=== PATIENT | male | born 1955 | race Caucasian/White ===

== ENCOUNTER → 2017-04-18 | Day surgery (SDC) | payer MEDICARE, OTHER ==
[2017-04-09 23:32] VITALS: BMI 36.3
--- NOTE | 2017-04-17 10:43 | HP ---
HISTORY AND PHYSICAL CHIEF COMPLAINT: Right shoulder pain. HISTORY OF PRESENT ILLNESS: The patient is a 61-year-old, right-hand dominant, retired gentleman who presents after falling in his living room on 11/14/2016 with persistent right shoulder pain. He has tried medications, physical therapy, and an injection with only partial temporary relief. He is having pain with attempted overhead use and at night. PAST MEDICAL HISTORY: Significant for coronary artery disease, history of pancreatitis and hypertension. PAST SURGICAL HISTORY: Significant for coronary artery bypass grafting, gastric bypass, cholecystectomy, and appendectomy. CURRENT MEDICATIONS: 1. Atorvastatin. 2. Demadex. 3. Diclofenac. 4. Inderal. 5. Plavix. 6. Prilosec. 7. [place]. ALLERGIES: He denies drug allergies. FAMILY HISTORY: Significant for heart disease. SOCIAL HISTORY: Negative for current tobacco or alcohol use. REVIEW OF SYSTEMS: Sixteen point review of systems otherwise reviewed and is noncontributory. PHYSICAL EXAMINATION: On examination, the patient is approximately 6 feet, 1 inch, 205 pounds of endomorphic habitus. HEENT exam is nonfocal. Neck is supple. Active range of motion of the right shoulder. Forward elevation 95 degrees, external rotation with the arm at side 35 degrees, internal rotation to L2. He has moderate subacromial crepitus. He is tender about the anterior subacromial space. Motor strength is 5 minus over 5 for external rotation and 4+ or 5 for abduction. Impingement test, Neer test, and Speed tests are positive. His distal neurovascular exam appears to be intact in the right upper extremity. MRI report right shoulder 03/07/2017 shows a supraspinatus tendon tear with some retraction. IMPRESSION: 1. Symptomatic right rotator cuff tear/impingement. 2. Right shoulder bicipital tendinitis. RECOMMENDATIONS: I talked to the patient at length regarding his treatment options. At this point, he remains quite symptomatic despite conservative measures. After a thorough discussion of his options, he opts to proceed with surgery. We will plan to proceed with arthroscopic evaluation with probable subacromial decompression, rotator cuff repair, and possible biceps tenotomy. Risks and benefits were discussed at length in layman's terms. MMODL / IJN: [id number] /
[~2017-04-18] MED LIST: DEXAMETHASONE SOD PHOSPHATE 10 MG/ML 1 ML VIAL IV ONE; EPINEPHrine (PF) 1 ML in SODIUM CHLORIDE 0.9% IRRIGATIO 3,000 ML IRRIGATION ONE; HYDROcodone/APAP 7.5-325MG 1 EACH TAB PO ONE; LACTATED RINGERS 1,000 ML IV ONE; LACTATED RINGERS 1,000 ML IV SCH; LIDOCAINE 1% INJ 10MG/ML (20 ML MDV) ONE; LIDOCAINE 2%-EPI 1:100,000 20 ML VIAL ONE; MIDAZOLAM 2 MG/2 ML VIAL IV PRN; MIDAZOLAM 2 MG/2 ML VIAL ONE; MORPHINE SULFATE 4 MG/ML SYRINGE IV PRN; ONDANSETRON 4 MG/2 ML VIAL IVP ONE; PROPOFOL 10 MG/ML 20 ML VIAL IV ONE; ROPIVACAINE 5 MG/ML 30 ML VIAL ONE; SCOPOLAMINE 1.5MG/72HR PATCH TRANSDERM ONE; SUCCINYLCHOLINE CHLORIDE VIAL 200 MG/10 ML VIAL IV ONE; ceFAZolin IN SWFI 2 GM/20 ML SYRINGE IVP ONE; ePHEDrine SULFATE/0.9% NACL/PF 50 MG/5 ML SYRINGE IV ONE; fentaNYL (PF) 50 MCG/ML 2 ML AMP ONE
[2017-04-18 06:56] VITALS: RESP 16
--- NOTE | 2017-04-18 07:25 | P.ONQ ---
Anesthesiology Proc Note - PNB - Peripheral Nerve Block Performed Right Interscalene Indication: Acute Post-Operative Pain, Requested by physician ([place]) Sedation Type: Sedate with meaningful contact maintained Preparation: Sterile Prep Position: Supine Catheter: None Needle Types: Other (see comment) (Jaky) Needle Size: 50mm (2") Needle Gauge: 20 Technique: Ultrasound (15cc 0.5% ropivacaine, 15cc Lidocaine 1%, 1:100,00 epi) Blood Aspirated: No Pain Paresthesia on Injection Noted: No Resistance on Injection: Normal Events: Uneventful and Well Tolerated
--- NOTE | 2017-04-18 09:38 | P.OP ---
Date of Procedure: 04/18/17 Preoperative Diagnosis: Symptomatic right rotator cuff tear Postoperative Diagnosis: 3 cm right rotator cuff tear, high-grade partial-thickness tear long head of the biceps, superior labral tear Procedure(s) Performed: Right shoulder arthroscopic subacromial decompression, biceps tenotomy, rotator cuff repair, superior labral debridement Implants: Arthrex 4.75 mm swivel lock anchor 4 [facility] Surgeon: Manuel Childress [employer] Commander #1: Kranthi Cat Estimated Blood Loss (ml): 10 Pathology: none sent Condition: stable Disposition: PACU Indications for Procedure: The patient's a 61-year-old male who presents with progressive right shoulder pain after a previous fall. He tried conservative measures without significant relief. A discussion of the risks and benefits of operative intervention versus continued conservative measures was made with the patient. The opted to proceed with surgery. Operative risks to include infection, neurovascular injury, development of blood clots, possible tendon rerupture, possible postoperative stiffness and need for subsequent procedures was discussed. Informed consent was obtained. Operative Findings: As below Description of Procedure: The patient was brought to the operating room, and after induction of general anesthesia was placed in a beachchair position. The bony prominences were appropriately padded. I examined his right shoulder. There was no gross block to passive motion. There was no gross glenohumeral instability. The right upper extremity was then prepped and draped in normal fashion. The bony outlines of the acromion, distal clavicle, and coracoid process were outlined with a skin marker. The glenohumeral joint was inflated with 50 mL of saline utilizing a spinal needle from a posterior approach. A posterior portal was made through a 5 mm skin incision 1 cm medial and inferior to the posterior lateral border of the acromion. A blunt trocar was used to easily into the joint. An anterior portals made just lateral to the coracoid process through a 5 mm skin incision entering the joint above the subscapularis tendon. The anterior labrum appeared to be intact. The subscapularis appeared to be intact. There was a high-grade partial-thickness tear of the long head of the biceps. A type II superior labral tear was also noted. It was elected to proceed with biceps tenotomy at this point. It was released from the superior labrum with electrocautery and lateral to retract the bicipital groove. The superior labrum was debrided back to stable base with a motorized shaver. On inspection of the rotator cuff, a 3 cm tear involving the supraspinatus and a portion of the infraspinatus tendon was noted. There was minimal retraction. The posterior portion of the cuff appeared to be intact. The inferior recess was inspected. Minimal general changes involving the humeral head and glenoid articular surface were noted. The arthroscope was then placed into the subacromial space. A lateral portal was made through a 5 mm skin incision 2 cm inferior to the anterolateral border the acromion. The soft tissue on the undersurface of the acromion was debrided with a motorized shaver and electrocautery clearly defining the anterior medial and lateral borders as well as the distal clavicle. The coracoacromial ligament was detached and anterior acromion with electrocautery. An anterior inferior acromioplasty is performed with a motorized amina starting anterolateral, then extending this posteriorly, then extending this medially. Is able to convert to a flat acromion viewing from both the posterior and lateral viewing portals. Attention was then paid towards the rotator cuff. The bursal tissues debrided with motorized shaver. The rotator cuff was easily mobilized back to the greater tuberosity. The greater tuberosity was prepared and lightly decorticated utilizing a motorized amina down to a bleeding bony surface. An accessory superior lateral portals made through a 4 mm skin incision just off the lateral edge of the acromion. A trocar was used to placed 2 anchors just off the articular surface. 4.75 mm anchors were placed loaded with fiber tape. Good purchase was obtained. These were then passed through the rotator cuff with a scorpion suture passer. A lateral row was created crisscrossing the sutures utilizing 2 anchors. Again good purchase was obtained. The rotator cuff was appropriate tension. Final arthroscopic view showed adequate compression and congregational of the augustine of present. The arthroscope was then removed. The portals were closed with simple 3-0 nylon suture. A sterile dressing was applied in addition to an abductor brace. The patient was awoken from general anesthesia and transferred to recovery room in good condition. Blood loss was estimated at 10 mL. No complications were incurred. Sponge and needle counts were correct at the end the case.
[2017-04-18 09:40] VITALS: TEMP 97
[2017-04-18 11:00] VITALS: BP 150/93; PULSE 86
== END | disposition home or self-care (01) ==
LOC: OR 06:28
PROVIDERS: ATTEND Orthopaedic Surgery
DX: S46.111A Strain of muscle, fascia and tendon of long head of biceps, right arm, initial encounter (principal); M75.101 Unspecified rotator cuff tear or rupture of right shoulder, not specified as traumatic; I25.10 Atherosclerotic heart disease of native coronary artery without angina pectoris; I10 Essential (primary) hypertension; Z79.02 Long term (current) use of antithrombotics/antiplatelets; Z79.899 Other long term (current) drug therapy; Z95.1 Presence of aortocoronary bypass graft; Z98.84 Bariatric surgery status; Z82.49 Family history of ischemic heart disease and other diseases of the circulatory system; Z91.81 History of falling
CPT/HCPCS: 64415; 29827; 29826; C1713 ×2; J2250; J0330; J1100; J2405; J0171; J2001; J3010; J2795; J2704

== ENCOUNTER 2019-09-25 18:36 | Inpatient (IN) | payer MEDICARE, OTHER ==
[2019-09-25] MEDS ORDERED: diphenhydrAMINE 50 MG/ML 1 ML VIAL IVP STA (18:45)
[2019-09-25] MEDS ORDERED: ONDANSETRON 4 MG/2 ML VIAL IVP STA (18:45)
[2019-09-25] MEDS ORDERED: SODIUM CHLORIDE 0.9% 1,000 ML IV STA (18:45)
[2019-09-25 18:50] LABS: Glucose,Whole Blood 109 mg/dL (75-99)
--- NOTE | 2019-09-25 19:01 | ED ---
General Adult HPI - General Stated complaint: CVA Time Seen by Provider: 09/25/19 18:38 - History of Present Illness Initial comments: Dictation was produced using [employer] dictation software. please excuse any grammatical, word or spelling errors. This patient was cared for during a federal and state declared state of emergency secondary to Covid 19 Chief Complaint: 63-year-old male presents with lightheadedness, vision changes and headache History of Present Illness: 63-year-old male who has past medical history of headaches. Patient is brought to us by EMS from home. 2 hours ago he began feeling presyncopal. He also developed left-sided retro-orbital headache or he states that his headache began moving up to the right side. He describes some vision changes. He describes it as "prismy", the same as though he is seeing m ultiple deficit perception out of both eyes. EMS upon their evaluation noted the patient was mildly aphasic with right-sided weakness. She denies any right- sided weakness at this time. He denies any numbness tingling or paresthesias. He is a reliable historian. He denies this being the worse headache of his life. He has had headaches like this in the past. The ROS documented in this emergency department record has been reviewed and confirmed by me. Those systems with pertinent positive or negative responses have been documented in the HPI. All other systems are other negative and/or n oncontributory. PHYSICAL EXAM: General Impression: Alert and oriented x3, not in acute distress HEENT: Normocephalic atraumatic, extra-ocular movements intact, pupils equal and reactive to light bilaterally, mucous membranes moist. Cardiovascular: Heart regular rate and rhythm Chest: Able to complete full sentences, no retractions, no tachypnea Abdomen: abdomen soft, non-tender, non-distended, no organomegaly Musculoskeletal: Pulses present and equal in all extremities, no peripheral edema Motor: no focal deficits noted Neurological: CN II-XII grossly intact, no focal motor or sensory deficits noted, and 80, no facial droop, no aphasia, no sensory deficit to light touch, intact vision to near sight objects, no ataxia Skin: Intact with no visualized rashes Psych: Normal affect and mood ED course: 63-year-old male presents with headache, vision changes. EMS reports that patient was aphasic and had focal neurologic deficits on the right. Upon my evaluation patient did not have any such symptoms. An arrival are within acceptable limits. NIH is 0. Patient's well-appearing at bedside. Laboratory evaluation obtained. Mild leukocytosis of 12.2 uncertain significance. Coag panel unremarkable. Metabolic panel is within acceptable limits. Slightly elevated BUN to creatinine ratio concerning for mild dehydration. Computed tomography scan the brain is unremarkable. Chest x-ray is nonacute. Considering patient's history of present illness and in light of EMS initial evaluation there is concern that patient suffered transient ischemic attack. Patient does not have any neuro deficits at bedside. Patient reevaluated after couple hours in the ER with no neuro deficits. Patient given headache cocktail with improvement of symptoms. Patient will be admitted to observation with consultation to neurology for concern of transient ischemic attack. EKG interpretation: Ventricular rate 85, normal sinus rhythm, MA interval 204, QRS 100, QTC 437. No MA prolongation, no QTC prolongation, no ST or T-wave changes noted. No EKG for comparison. There do appear to be hyperacute T waves in the anterior precordial leads. - Related Data Home Medications Medication Instructions Recorded Confirmed Felodipine ER [Plendil] 5 mg PO HS 04/09/17 04/09/17 Omeprazole 20 mg PO QAM 04/09/17 04/09/17 Propranolol HCl [Propranolol HCl 120 mg PO BID 04/09/17 04/09/17 ER] Spironolactone [Aldactone] 25 mg PO QAM 04/09/17 04/09/17 Torsemide [Demadex] 20 mg PO QAM 04/09/17 04/09/17 Previous Rx's Medication Instructions Recorded HYDROcodone/APAP 7.5-325MG [[place] 1 each PO Q6HR PRN #30 tab 04/18/17 7.5] Allergies Allergy/AdvReac Type Severity Reaction Status Date / Time No Known Allergies Allergy Verified 04/18/17 06:41 Review of Systems ROS Statement: Those systems with pertinent positive or pertinent negative responses have been documented in the HPI. ROS Other: All systems not noted in ROS Statement are negative. Past Medical History Past Medical History: GERD/Reflux, Hyperlipidemia, Hypertension History of Any Multi-Drug Resistant Organisms: None Reported Past Surgical History: Appendectomy, Cholecystectomy, Coronary Bypass/CABG, Orthopedic Surgery Additional Past Surgical History / Comment(s): left arm tendon repair, stent in bile tract, exploratory abd surgery with appy Past Anesthesia/Blood Transfusion Reactions: Previous Problems w/ Anesthesia Additional Past Anesthesia/Blood Transfusion Reaction / Comment(s): only one time a month ago at [facility] was loopy for 3 days after sugery Smoking Status: Former smoker - Past Family History Mother Family Medical History: No Reported History Course Vital Signs 09/25/19 19:03 Temperature 99.6 F Pulse Rate 81 Respiratory 18 Rate Blood Pressure 167/104 O2 Sat by Pulse 95 Oximetry Medical Decision Making - Lab Data Result diagrams: 09/25/19 18:50 09/25/19 18:50 Lab Results 09/25/19 09/25/19 09/25/19 Range/Units 18:48 18:50 18:50 WBC 12.2 H (3.8-10.6) k/uL RBC 5.28 (4.30-5.90) m/uL Hgb 14.9 (13.0-17.5) gm/dL Hct 46.8 (39.0-53.0) % MCV 88.6 (80.0-100.0) fL MCH 28.3 (25.0-35.0) pg MCHC 31.9 (31.0-37.0) g/dL RDW 16.3 H (11.5-15.5) % Plt Count 442 (150-450) k/uL Neutrophils % 69 % Lymphocytes % 15 % Monocytes % 10 % Eosinophils % 3 % Basophils % 1 % Neutrophils # 8.4 H (1.3-7.7) k/uL Lymphocytes # 1.8 (1.0-4.8) k/uL Monocytes # 1.2 H (0-1.0) k/uL Eosinophils # 0.3 (0-0.7) k/uL Basophils # 0.1 (0-0.2) k/uL Anisocytosis Slight PT 9.4 (9.0-12.0) sec INR 0.9 (<1.2) APTT 24.3 (22.0-30.0) sec Sodium (137-145) mmol/L Potassium (3.5-5.1) mmol/L Chloride (98-107) mmol/L Carbon Dioxide (22-30) mmol/L Anion Gap mmol/L BUN (9-20) mg/dL Creatinine (0.66-1.25) mg/dL Est GFR (CKD-EPI)AfAm (>60 ml/min/1.73 sqM) Est GFR (CKD-EPI)NonAf (>60 ml/min/1.73 sqM) Glucose (74-99) mg/dL POC Glucose (mg/dL) 109 H (75-99) mg/dL POC Glu [employer] Lacy Bueno Plasma Lactic Acid Zac (0.7-2.0) mmol/L Calcium (8.4-10.2) mg/dL Magnesium (1.6-2.3) mg/dL Total Bilirubin (0.2-1.3) mg/dL AST (17-59) U/L ALT (4-49) U/L Alkaline Phosphatase (38-126) U/L Total Protein (6.3-8.2) g/dL Albumin (3.5-5.0) g/dL 09/25/19 09/25/19 Range/Units 18:50 18:50 WBC (3.8-10.6) k/uL RBC (4.30-5.90) m/uL Hgb (13.0-17.5) gm/dL Hct (39.0-53.0) % MCV (80.0-100.0) fL MCH (25.0-35.0) pg MCHC (31.0-37.0) g/dL RDW (11.5-15.5) % Plt Count (150-450) k/uL Neutrophils % % Lymphocytes % % Monocytes % % Eosinophils % % Basophils % % Neutrophils # (1.3-7.7) k/uL Lymphocytes # (1.0-4.8) k/uL Monocytes # (0-1.0) k/uL Eosinophils # (0-0.7) k/uL Basophils # (0-0.2) k/uL Anisocytosis PT (9.0-12.0) sec INR (<1.2) APTT (22.0-30.0) sec Sodium 138 (137-145) mmol/L Potassium 4.7 (3.5-5.1) mmol/L Chloride 106 (98-107) mmol/L Carbon Dioxide 25 (22-30) mmol/L Anion Gap 7 mmol/L BUN 29 H (9-20) mg/dL Creatinine 1.11 (0.66-1.25) mg/dL Est GFR (CKD-EPI)AfAm 81 (>60 ml/min/1.73 sqM) Est GFR (CKD-EPI)NonAf 70 (>60 ml/min/1.73 sqM) Glucose 110 H (74-99) mg/dL POC Glucose (mg/dL) (75-99) mg/dL POC Glu [employer] Machinist ID Plasma Lactic Acid Zac 1.3 (0.7-2.0) mmol/L Calcium 9.3 (8.4-10.2) mg/dL Magnesium 2.0 (1.6-2.3) mg/dL Total Bilirubin 0.4 (0.2-1.3) mg/dL AST 26 (17-59) U/L ALT 39 (4-49) U/L Alkaline Phosphatase 119 (38-126) U/L Total Protein 7.1 (6.3-8.2) g/dL Albumin 4.2 (3.5-5.0) g/dL Disposition Clinical Impression: TIA (transient ischemic attack) Disposition: ADMITTED IP TO THIS HOSP Condition: Fair Referrals: Jim Suarez MD [Primary Care Provider] - 1-2 days Decision Time: 20:17
[2019-09-25 19:15] LABS: Anisocytosis Slight; Basophils # (A) 0.1 k/uL (0-0.2); Basophils % (A) 1 %; Eosinophils # (A) 0.3 k/uL (0-0.7); Eosinophils % (A) 3 %; HCT 46.8 % (39.0-53.0); HGB 14.9 gm/dL (13.0-17.5); Lymphocytes # (A) 1.8 k/uL (1.0-4.8); Lymphocytes % (A) 15 %; MCH 28.3 pg (25.0-35.0); MCHC 31.9 g/dL (31.0-37.0); MCV 88.6 fL (80.0-100.0); Mean Platelet Volume 7.4; Monocytes # (A) 1.2 k/uL (0-1.0); Monocytes % (A) 10 %; Neutrophils # (A) 8.4 k/uL (1.3-7.7); Neutrophils % (A) 69 %; Platelet Count 442 k/uL (150-450); RBC 5.28 m/uL (4.30-5.90); RDW 16.3 % (11.5-15.5); WBC 12.2 k/uL (3.8-10.6)
[2019-09-25 19:23] LABS: Albumin 4.2 g/dL (3.5-5.0); Calcium 9.3 mg/dL (8.4-10.2); Potassium 4.7 mmol/L (3.5-5.1); Total Bilirubin 0.4 mg/dL (0.2-1.3); Total Protein 7.1 g/dL (6.3-8.2)
[2019-09-25 19:24] LABS: INR 0.9 (<1.2); Prothrombin Time 9.4 sec (9.0-12.0)
[2019-09-25 19:25] LABS: Partial Thromboplastin Time 24.3 sec (22.0-30.0)
--- NOTE | 2019-09-25 19:29 | CT ---
EXAMINATION TYPE: CT brain wo con DATE OF EXAM: 09/25/2019 COMPARISON: None HISTORY: 63-year-old male Headache and vision changes. TECHNIQUE: Examination was done in axial plane without intravenous contrast. Coronal and sagittal r econstructions performed. CT DLP: 1099.4 mGycm Automated exposure control for dose reduction was used. FINDINGS: There is no evidence of acute intracranial hemorrhage, acute ischemic changes, mass, mass-effect, or extra-axial fluid collection. There is no effacement of cerebral sulci or basal subarachnoid cister ns. There is no hydrocephalus. There is no midline shift. Esparza-white matter distinction is preserv ed. Dolichoectatic left vertebral and basilar arteries. 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 Paranasal sinuses and mastoid air cells well pneumatized. IMPRESSION: 1. No acute intracranial abnormality seen. 2. 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
--- NOTE | 2019-09-25 19:38 | XR ---
EXAMINATION TYPE: XR chest 1V portable DATE OF EXAM: 09/25/2019 Comparison: None Clinical History: 63-year-old male with neurologic symptoms Findings: Median sternotomy wires are present with post-CABG clips. Heart mildly enlarged. Mild interstitial pr ominence is a chronic appearance. No consolidation or pleural effusion. Impression: Prior median sternotomy. Mild cardiomegaly. No definite acute process.
[2019-09-25] MEDS ORDERED: ASPIRIN 81 MG PO STA (20:16)
[2019-09-25] MEDS ORDERED: NALOXONE 0.4 MG/ML 1 ML VIAL IV PRN (20:17)
[2019-09-25] MEDS: SODIUM CHLORIDE 0.9% 1,000 ML IV SCH (20:41)
[2019-09-25] MEDS: MORPHINE SULFATE 4 MG/ML SYRINGE IV PRN (21:23)
[2019-09-25] MEDS: ACETAMINOPHEN TAB 325 MG TAB PO PRN (23:02)
[2019-09-26] MEDS: MORPHINE SULFATE 4 MG/ML SYRINGE IV PRN (10:49)
[2019-09-26] MEDS ORDERED: HYDROmorphone 1 MG/ML 1 ML SYRINGE IVP STA (12:13)
--- NOTE | 2019-09-26 12:30 | CT ---
EXAMINATION TYPE: CT angio head neck DATE OF EXAM: 09/26/2019 HISTORY: TIA COMPARISON: Previous CT brain dated 09/25/2019. CT DLP: 724.8 mGycm. Automated Exposure Control for Dose Reduction was Utilized. TECHNIQUE: CTA scan of the neck is performed with IV Contrast, patient injected with 65 mL of Isovue 370, axial images are obtained, coronal and sagittal reformatted images are reviewed. Three-D recons tructed images are created on an independent workstation and reviewed. FINDINGS: Visualized portions of the lungs are clear. The aortic root is dilated measuring 4.5 cm. 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 Vertebral body height and alignment are maintained. Atlantoaxial relationships are normal. There is d egenerative disc disease and hypertrophic spondylosis at C5-6 and there is mild facet arthropathy at this level. The facets are unremarkable. There is a 1.5 cm retention cyst or polyp involving the left maxillary sinus. The remainder the paran dee sinuses and mastoids are clear. There is a normal origin of the great vessels. The left vertebral artery is dominant. There is no sig nificant calcified plaque at the carotid bifurcations. There is minimal calcification on the left. Th ere is no significant stenosis on either side. CT of the [place] demonstrates moderate calcification of the intrahepatic petrous and intrac avernous portions of the ICA bilaterally. There is dolichoectasia of the vertebrobasilar system. Both anterior cerebral arteries are patent. The posterior circulation appears normal. There appears to be normal arborization of the middle cerebral arteries. IMPRESSION: 1. NO SIGNIFICANT CAROTID ARTERY STENOSIS. 2. UNREMARKABLE CTA OF THE [place].
--- NOTE | 2019-09-26 14:00 | P.CNNES ---
History of Present Illness Consult date: 09/26/19 Reason for Consult: TIA Chief complaint: dizziness, slurred speech and visual changes History of Present Illness: The patient is a 63-year-old male who is seen in neurologic consultation on September 26, 2019, via teleneurology. The patient reports that he had an episode of dizziness, visual changes- described as seeing things moving, slurred speech and right hand weakness. Initially the patient tells me that this is the second episode. He reports also having a headache. After further discussion, the patient admits to having multiple episodes like this. He reports not drinking enough fluids. He believes these episodes are because of being dehydrated. He believes his headaches are secondary to "bad sinuses" he says he feels problems with his years and his throat. When he has the headache, he reports vomiting, photophobia and phonophobia. In regards to this recent episode, the patient reports that he had been out in the sun and moving things around. He denies shortness of breath and diaphoresis. He does state that he felt as if he was going to pass out. He says that the symptoms lasted for approximately 1-1/2 hours. Patient's other symptoms have not been as long lasting. The patient also reports episodes of loss of the vision in his right periphery. He says that he has slurring of his speech "when I get hot" the patient's symptoms resolved gradually. The patient reports difficulty with his short-term memory. He is currently being investigated for a pituitary adenoma. He reports gynecomastia. He is scheduled to have an MRI of his brain, through the [facility] system. Review of Systems See history of present illness Past Medical History Past Medical History: GERD/Reflux, Hyperlipidemia, Hypertension History of Any Multi-Drug Resistant Organisms: None Reported Past Surgical History: Appendectomy, Cholecystectomy, Coronary Bypass/CABG, Orthopedic Surgery Additional Past Surgical History / Comment(s): left arm tendon repair, stent in bile tract, exploratory abd surgery with appy Past Anesthesia/Blood Transfusion Reactions: Previous Problems w/ Anesthesia Additional Past Anesthesia/Blood Transfusion Reaction / Comment(s): only one time a month ago at [facility] was loopy for 3 days after sugery Past Psychological History: No Psychological Hx Reported Smoking Status: Former smoker Past Alcohol Use History: None Reported Past Drug Use History: None Reported - Past Family History Mother Family Medical History: No Reported History Medications and Allergies Home Medications Medication Instructions Recorded Confirmed Type Omeprazole 20 mg PO DAILY 04/09/17 09/25/19 History Propranolol HCl [Propranolol HCl 120 mg PO DAILY 04/09/17 09/25/19 History ER] Spironolactone [Aldactone] 50 mg PO DAILY 04/09/17 09/25/19 History Torsemide [Demadex] 20 mg PO DAILY 04/09/17 09/25/19 History Allopurinol [Zyloprim] 300 mg PO DAILY 09/25/19 09/25/19 History HYDROcodone/APAP 5-325MG [[place] 1 tab PO Q6HR PRN 09/25/19 09/25/19 History 5-325] Lipase/Protease/Amylase [[place] 24,000 units PO TID-W/MEALS 09/25/19 09/25/19 History 24,000 Units Capsule] Allergies Allergy/AdvReac Type Severity Reaction Status Date / Time No Known Allergies Allergy Verified 09/25/19 22:08 Physical Examination - Vital Signs Vital Signs: Vital Signs Temp Pulse Pulse Resp BP BP Pulse Ox 09/26/19 04:00 77 18 141/95 97 09/26/19 00:20 97.9 F 78 16 152/90 96 09/25/19 22:00 97.8 F 75 18 167/101 95 09/25/19 20:37 81 18 136/87 98 09/25/19 19:03 99.6 F 81 18 167/104 95 Intake and Output 09/25/19 09/26/19 09/26/19 22:59 06:59 14:59 Other: Voiding Method Toilet Toilet # Voids 1 1 Weight 124.738 kg 120.5 kg Gen.: The patient is reclining in the bed. He is well-nourished, well-developed and in no acute distress. HEENT: Head is atraumatic, normocephalic. Fundus not visualized. There is no scleral icterus. Mucous members are moist. Heart: Regular rate and rhythm Lungs: Clear to auscultation Extremities: Without edema Neurological examination Mental status: The patient is awake, alert and oriented 3. His speech is clear. He tells me twice, that he is scheduled for an MRI of his brain. He tells me 4 times about his symptoms that brought him into the hospital. Cranial nerves: Pupils are equal, round and reactive to light. Visual narayanan are full to confrontation. Extraocular movements are intact. There is no nystagmus. Facial sensation is intact. There is no facial asymmetry. Hearing is grossly intact. Uvula and palate are midline. Shoulder shrug is symmetric. Tongue protrudes midline. Motor: Strength is 5/5 throughout Coordination: Finger to nose and rapid alternating movements are intact Deep tendon reflexes: 2+/4+ in the upper extremities. Absent in the lower extremities. Sensation: Grossly intact to light touch Results - Laboratory Findings CBC and BMP: 09/25/19 18:50 09/25/19 18:50 Abnormal Lab Findings: Abnormal Labs 09/25/19 09/25/19 09/25/19 18:48 18:50 18:50 WBC 12.2 H RDW 16.3 H Neutrophils # 8.4 H Monocytes # 1.2 H BUN 29 H Glucose 110 H POC Glucose (mg/dL) 109 H - Diagnostic Findings Comments: CT scan of the brain images and report have been reviewed Assessment and Plan Assessment: 1. Transient ischemic attack-reported multiple episodes 2. The patient currently is being worked up for pituitary adenoma, if this is a macroadenoma it may be interfering with the patient's vision and may be the etiology of the reported right visual field loss 3. Hypertension Plan: 1. Check orthostatic vital signs 2. 2-D echocardiogram 3. CT angiogram of the head and neck 4. Lipid panel, hemoglobin A1c and TSH should be checked Time with Patient: Greater than 30 (spent 45 minutes with patient via teleneurology)
[2019-09-26] MEDS ORDERED: MAG HYDROX/AL HYDROX/SIMETH 30 ML CUP PO PRN (14:11)
[2019-09-26] MEDS: BUTALB/APAP/CAFF 50-325-40MG TAB PO PRN (15:44)
[2019-09-26] MEDS: SPIRONOLACTONE 25 MG TAB PO SCH (15:44)
[2019-09-26] MEDS: TORSEMIDE 20 MG TAB PO SCH (15:45)
[2019-09-26] MEDS: PROPRANOLOL LA 60 MG CAP.SA.24H PO SCH (15:46)
[2019-09-26] MEDS: LIPASE 5,000/PROTEASE 17,000/AMYLASE 24,000 PO SCH (19:14)
[2019-09-26] MEDS ORDERED: MELATONIN 5 MG TABLET PO SCH (21:00)
[2019-09-26] MEDS: LORATADINE-PSEUDOEPH 5-120 MG 1 EACH TAB.ER.12H PO SCH (21:02)
[2019-09-26] MEDS: SODIUM CHLORIDE 0.9% 1,000 ML IV SCH (21:02)
[2019-09-26] MEDS: FLUTICASONE 50MCG/SPRAY NASAL 16GM EA NOSTRIL SCH (21:03)
--- NOTE | 2019-09-26 23:07 | P.HPIM ---
History of Present Illness H&P Date: 09/26/19 Chief Complaint: Dizziness, headaches and blurring of vision, weakness of the right upper e Mr. Stovall is a 63-year-old male with a past medical history of hypertension, hyperlipidemia, GERD, coronary artery disease status post CABG coming into the hospital with a chief complaint of headaches, dizziness and blurring of vision. Patient states that he has been having prismatic type of vision that he has been seen things as though he is seen through the present. And he states that these are new along with dizziness and gait abnormality. He also mentions about having weakness of his right upper extremity. He denies having any tingling or numbness sensation. Patient also mentions about having issues with his sinuses. Patient mentions about working outside in warm weather for few hours before he felt dyspneic. He denied having any chest pain or palpitations no cough or difficulty in breathing. Patient said he felt like passing out but there was no loss of consciousness. Patient is currently being worked up and states that he will be getting an open MRI, as a part of work up for pituitary adenoma, due to claustrophobia in couple of weeks. In the emergency department patient had neuro consult done via telemetry, stating he might be having TIA so stroke work-up currently in progress. Patient also had CT of the brain that was negative for any acute intracranial abnormality and CT [place] of the head and neck showed no significant carotid art sharifa stenosis and unremarkable CTA of the [place]. Patient's labs have been reviewed are within normal limits. Review of Systems REVIEW OF SYSTEMS: PSYCH:no anxiety or depression NEURO: As per HPI. VASCULAR: he has varicose veins and LE swelling HEMATOLOGIC: No history of easy bleeding and bruising . No recent infections . RESPIRATORY: No cough, No SOB, No chest discomfort. IMMUNE: No infections INTEGUMENT: no rashes OPHTHALMOLOGIC: No blurry vision and no eye discharge : No dysuria or hematuria CARDIAC: No chest pain , shortness of breath , paroxysmal nocturnal dyspnea MUSCULOSKELETAL : No Aches or pains in the joints or muscles. GI: No abdominal pain, Nausea or vomiting. No constipation or diarrhea. Past Medical History Past Medical History: GERD/Reflux, Hyperlipidemia, Hypertension History of Any Multi-Drug Resistant Organisms: None Reported Past Surgical History: Appendectomy, Cholecystectomy, Coronary Bypass/CABG, Orthopedic Surgery Additional Past Surgical History / Comment(s): left arm tendon repair, stent in bile tract, exploratory abd surgery with appy Past Anesthesia/Blood Transfusion Reactions: Previous Problems w/ Anesthesia Additional Past Anesthesia/Blood Transfusion Reaction / Comment(s): only one time a month ago at [facility] was loopy for 3 days after sugery Past Psychological History: No Psychological Hx Reported Smoking Status: Former smoker Past Alcohol Use History: None Reported Past Drug Use History: None Reported - Past Family History Mother Family Medical History: No Reported History Medications and Allergies Home Medications Medication Instructions Recorded Confirmed Type Omeprazole 20 mg PO DAILY 04/09/17 09/25/19 History Propranolol HCl [Propranolol HCl 120 mg PO DAILY 04/09/17 09/25/19 History ER] Spironolactone [Aldactone] 50 mg PO DAILY 04/09/17 09/25/19 History Torsemide [Demadex] 20 mg PO DAILY 04/09/17 09/25/19 History Allopurinol [Zyloprim] 300 mg PO DAILY 09/25/19 09/25/19 History HYDROcodone/APAP 5-325MG [[place] 1 tab PO Q6HR PRN 09/25/19 09/25/19 History 5-325] Lipase/Protease/Amylase [Creon Dr 24,000 units PO TID-W/MEALS 09/25/19 09/25/19 History 24,000 Units Capsule] Allergies Allergy/AdvReac Type Severity Reaction Status Date / Time No Known Allergies Allergy Verified 09/25/19 22:08 Physical Exam Vitals: Vital Signs Temp Pulse Pulse Resp BP BP BP 09/26/19 15:30 97.4 F L 80 18 147/87 150/97 09/26/19 12:10 98.1 F 75 18 153/92 09/26/19 09:15 97.5 F L 73 18 151/97 09/26/19 04:00 77 18 141/95 09/26/19 00:20 97.9 F 78 16 152/90 09/25/19 22:00 97.8 F 75 18 167/101 09/25/19 20:37 81 18 136/87 BP BP Pulse Ox 09/26/19 15:30 162/102 150/87 94 L 09/26/19 12:10 97 09/26/19 09:15 96 09/26/19 04:00 97 09/26/19 00:20 96 09/25/19 22:00 95 09/25/19 20:37 98 Intake and Output 09/26/19 09/26/19 09/26/19 06:59 14:59 22:59 Intake Total 225 225 Balance 225 225 Intake: Oral 225 225 Other: Voiding Method Toilet # Voids 1 1 Weight 120.5 kg PHYSICAL EXAMINATION GEN. APPEARANCE: alert, in no apparent distress HEAD EXAM: atraumatic, normocephalic, normal inspection, mild tenderness in the frontal sinuses EYE EXAM: normal appearance, PERRL, EOMI. No pllor or ircterus ENT EXAM: normal exam, mucous membranes moist NECK EXAM: normal inspection. No thyromegaly . RESPIRATORY EXAM: normal lung sounds bilaterally. No wheeze or crackles. CARDIOVASCULAR EXAM: regular rate, normal rhythm, normal heart sounds. GI/ABDOMINAL EXAM: soft, normal bowel sounds. No tenderness, guarding, rebound or rigidity EXTREMITIES EXAM: normal inspection, full ROM, normal capillary refill. MIld pitting edema bilaterally. NEUROLOGICAL EXAM: alert, oriented X3, no focal deficits, strenght 5/ 5 in all 4 extremities. PSYCHIATRIC EXAM: normal affect, normal mood SKIN EXAM: warm, dry, intact, normal color. Results CBC & Chem 7: 09/25/19 18:50 09/25/19 18:50 Labs: Abnormal Lab Results - Last 24 Hours (Table) 09/25/19 09/25/19 Range/Units 18:50 18:50 WBC 12.2 H (3.8-10.6) k/uL RDW 16.3 H (11.5-15.5) % Neutrophils # 8.4 H (1.3-7.7) k/uL Monocytes # 1.2 H (0-1.0) k/uL BUN 29 H (9-20) mg/dL Glucose 110 H (74-99) mg/dL Thrombosis Risk Factor Assmnt - Choose All That Apply Each Factor Represents 1 point: Obesity (BMI >25) Each Risk Factor Represents 2 Points: Age 61-74 years Other congenital or acquired thrombophilia - If yes, enter type in comment: No Thrombosis Risk Factor Assessment Total Risk Factor Score: 3 Thrombosis Risk Factor Assessment Level: Moderate Risk Assessment and Plan Assessment: ASSESSMENT Headaches, dizziness with blurring of vision-could be due to TIA. Work-up for stroke in progress 2D echogram ordered. He had a CT [place] of the head and neck that was within normal limits. Hypertension Hyperlipidemia Coronary artery disease status post CABG GERD Mild leukocytosis PLAN: Work-up for TIA in progress. Neurology had seen the patient via telemetry and ordered CT Angio of the head and neck. Results reviewed. Patient had an echocardiogram pending. Patient's current complaint is the ongoing headache, will give a trial of Fioricet. As he is complaining of sinus fullness will give a trial of Flonase and Zyrtec. Patient was also being evaluated for pituitary adenoma as outpatient. SCDs and early ambulation for DVT prophylaxis. Further recommendations to follow depending on the progress of the patient.
[2019-09-27] MEDS: BUTALB/APAP/CAFF 50-325-40MG TAB PO PRN ×3 (01:53→12:49)
[2019-09-27] MEDS: ACETAMINOPHEN TAB 325 MG TAB PO PRN (04:41)
[2019-09-27] MEDS: LIPASE 5,000/PROTEASE 17,000/AMYLASE 24,000 PO SCH ×2 (06:20→12:56)
[2019-09-27 06:37] LABS: Anisocytosis Slight; Basophils # (A) 0.1 k/uL (0-0.2); Basophils % (A) 1 %; Eosinophils # (A) 0.3 k/uL (0-0.7); Eosinophils % (A) 3 %; HCT 45.4 % (39.0-53.0); HGB 14.9 gm/dL (13.0-17.5); Hypochromasia Slight; Lymphocytes # (A) 1.7 k/uL (1.0-4.8); Lymphocytes % (A) 16 %; MCH 29.7 pg (25.0-35.0); MCHC 32.8 g/dL (31.0-37.0); MCV 90.6 fL (80.0-100.0); Mean Platelet Volume 6.9; Monocytes % (A) 9 %; Neutrophils # (A) 7.3 k/uL (1.3-7.7); Neutrophils % (A) 68 %; Platelet Count 415 k/uL (150-450); RBC 5.01 m/uL (4.30-5.90); RDW 16.1 % (11.5-15.5); WBC 10.7 k/uL (3.8-10.6)
[2019-09-27 06:46] LABS: Calcium 9.6 mg/dL (8.4-10.2); Potassium 5.3 mmol/L (3.5-5.1)
[2019-09-27] MEDS ORDERED: PANTOPRAZOLE 40 MG TABLET PO SCH (07:30)
[2019-09-27] MEDS: TORSEMIDE 20 MG TAB PO SCH (07:45)
[2019-09-27] MEDS: SPIRONOLACTONE 25 MG TAB PO SCH (07:46)
[2019-09-27] MEDS: PROPRANOLOL LA 60 MG CAP.SA.24H PO SCH (07:46)
[2019-09-27] MEDS: LORATADINE-PSEUDOEPH 5-120 MG 1 EACH TAB.ER.12H PO SCH (07:46)
[2019-09-27] MEDS: FLUTICASONE 50MCG/SPRAY NASAL 16GM EA NOSTRIL SCH (07:48)
[2019-09-27] MEDS ORDERED: allopurinoL 300 MG TAB PO SCH (09:00)
--- NOTE | 2019-09-27 11:44 | ECHOF ---
Referral Reason:TIA MEASUREMENTS -------- HEIGHT: 180.3 cm WEIGHT: 119.3 kg BP: 140/83 RVIDd: 3.8 cm (< 3.3) IVSd: 1.5 cm (0.6 - 1.1) LVIDd: 4.2 cm (3.9 - 5.3) LVPWd: 1.8 cm (0.6 - 1.1) IVSs: 2.2 cm LVIDs: 2.9 cm LVPWs: 2.5 cm Ao Diam: 3.0 cm (2.0 - 3.7) AV Cusp: 2.6 cm (1.5 - 2.6) LA Diam: 2.8 cm (2.7 - 3.8) MV EXCURSION: 15.271 mm (> 18.000) MV EF SLOPE: 29 mm/s (70 - 150) EPSS: 0.6 cm MV E Bill: 0.75 m/s MV DecT: 222 ms MV A Bill: 0.71 m/s MV E/A Ratio: 1.06 RAP: 5.00 mmHg RVSP: 12.14 mmHg FINDINGS -------- Sinus rhythm. This was a technically adequate study. The left ventricular size is normal. There is severe concentric left ventricular hypertrophy. Ove rall left ventricular systolic function is low-normal with, an EF between 50 - 55 %. The right ventricle is mild to moderately enlarged. The left atrial size is normal. The right atrial size is normal. Unable to visualize septum. The aortic valve is trileaflet and appears structurally normal. The mitral valve is normal. The mitral valve leaflets are mildly thickened. Mild mitral regurgita tion is present. The tricuspid valve appears structurally normal. Mild tricuspid regurgitation present. Right vent ricular systolic pressure is normal at < 35 mmHg. There is no pulmonic regurgitation present. The aortic root size is normal. There is no pericardial effusion. CONCLUSIONS -------- 1. Sinus rhythm. 2. This was a technically adequate study. 3. The left ventricular size is normal. 4. There is severe concentric left ventricular hypertrophy. 5. Overall left ventricular systolic function is low-normal with, an EF between 50 - 55 %. 6. The right ventricle is mild to moderately enlarged. 7. The left atrial size is normal. 8. The right atrial size is normal. 9. Unable to visualize septum. 10. The aortic valve is trileaflet and appears structurally normal. 11. The mitral valve is normal. 12. The mitral valve leaflets are mildly thickened. 13. Mild mitral regurgitation is present. 14. The tricuspid valve appears structurally normal. 15. Mild tricuspid regurgitation present. 16. Right ventricular systolic pressure is normal at < 35 mmHg. 17. There is no pulmonic regurgitation present. 18. The aortic root size is normal. 19. There is no pericardial effusion. SHREDDING MACHINE KNIFE CHANGER: Zhane Guerra RDCS
[2019-09-27 13:04] VITALS: RESP 22; TEMP 98
[2019-09-27 13:35] LABS: Hemoglobin A1C 6.1 % (4.0-6.0)
[2019-09-27] MEDS ORDERED: hydrALAZINE HCL 20 MG/ML 1 ML VIAL IVP PRN (14:27)
[2019-09-27 15:27] VITALS: BP 159/105; PULSE 73
[2019-09-27] MEDS: MORPHINE SULFATE 4 MG/ML SYRINGE IV PRN (15:27)
--- NOTE | 2019-09-28 00:26 | P.DS ---
Providers Date of admission: 09/27/19 12:32 Expected date of discharge: 09/27/19 Attending physician: Tesha Sheriff Consults: 09/25/19 20:18 Consult Physician Routine Consulting Provider: Frida Christopher Consult Reason/Comments: tia Do you want consulting provider notified?: Yes Primary care physician: [facility] Course: Mr. Stovall is a 63-year-old male with a past medical history of hypertension, hyperlipidemia, GERD, coronary artery disease status post CABG coming into the hospital with a chief complaint of headaches, dizziness and blurring of vision. Patient states that he has been having prismatic type of vision that he has been seen things as though he is seen through the present. And he states that these are new along with dizziness and gait abnormality. He also mentions about having weakness of his right upper extremity. He denies having any tingling or numbness sensation. Patient also mentions about having issues with his sinuses. Patient mentions about working outside in warm weather for few hours before he felt dyspneic. He denied having any chest pain or palpitations no cough or difficulty in breathing. Patient said he felt like passing out but there was no loss of consciousness. Patient will be getting an open MRI, as a part of work up for pituitary adenoma, due to claustrophobia in couple of weeks. In the emergency department patient had neuro consult done via telemetry, stating he might be having TIA so stroke work-up currently in progress. Patient also had CT of the brain that was negative for any acute intracranial abnormality and CT [place] of the head and neck showed no significant carotid artery stenosis and unremarkable CTA of the [place]. Patient's labs have been reviewed are within normal limits. On 09/27/19 - Patient was still complaining of headache and pain behind his left eye. Neurology Dr. Love has evaluated the patient and suggested that he needs to be transferred to a higher facility as he needs an MRI sooner than later and this has to be done under general anesthesia due to patient's history of severe claustrophobia. Patient was very upset and his blood pressure was running on the higher side. He was given a dose of hydralazine and his blood pressure has been trending down. Eventually, patient was agreeable to be transferred to a higher tertiary care facility. So [facility] was contacted and verbal signout to the on-call physician was given by me. He was accepted and transferred. DISCHARGE DIAGNOSIS Headaches, dizziness with blurring of vision-could be due to TIA vs Pituitary mass Hypertension - porrly controlled Hyperlipidemia Coronary artery disease status post CABG GERD Mild leukocytosis PLAN: Pt is transferred to [facility], verbal sign out to the accepting /quality assurance monitor body physician was given by me. More than 1 hr spent coordinating the discharge care of the patient. Patient Condition at Discharge: Fair Plan - Discharge Summary New Discharge Prescriptions: No Action Torsemide [Demadex] 20 mg PO DAILY Spironolactone [Aldactone] 50 mg PO DAILY Propranolol HCl [Propranolol HCl ER] 120 mg PO DAILY Omeprazole 20 mg PO DAILY Allopurinol [Zyloprim] 300 mg PO DAILY Lipase/Protease/Amylase [Creon Dr 24,000 Units Capsule] 24,000 units PO TID- W/MEALS HYDROcodone/APAP 5-325MG [[place] 5-325] 1 tab PO Q6HR PRN PRN Reason: Pain Discharge Medication List Omeprazole 20 mg PO DAILY 04/09/17 [History] Propranolol HCl [Propranolol HCl ER] 120 mg PO DAILY 04/09/17 [History] Spironolactone [Aldactone] 50 mg PO DAILY 04/09/17 [History] Torsemide [Demadex] 20 mg PO DAILY 04/09/17 [History] Allopurinol [Zyloprim] 300 mg PO DAILY 09/25/19 [History] HYDROcodone/APAP 5-325MG [[place] 5-325] 1 tab PO Q6HR PRN 09/25/19 [History] Lipase/Protease/Amylase [[place] Dr 24,000 Units Capsule] 24,000 units PO TID- W/MEALS 09/25/19 [History] Follow up Appointment(s)/Referral(s): Jim Suarez MD [Primary Care Provider] - 1-2 days Discharge Disposition: OTHER INSTITUTION NOT DEFINED
== END 2019-09-27 16:00 | disposition short-term general hospital (02) | DRG 644 ==
LOC: EC 18:36 → 3SCARD 20:17 → OBSVTOIN 09-27 12:32
PROVIDERS: ADMIT Hospitalist; ATTEND Hospitalist
DX: D35.2 Benign neoplasm of pituitary gland (principal); G45.9 Transient cerebral ischemic attack, unspecified; E78.5 Hyperlipidemia, unspecified; I25.10 Atherosclerotic heart disease of native coronary artery without angina pectoris; K21.9 Gastro-esophageal reflux disease without esophagitis; E86.0 Dehydration; I10 Essential (primary) hypertension; N62 Hypertrophy of breast; Z11.59 Encounter for screening for other viral diseases; Z90.49 Acquired absence of other specified parts of digestive tract; Z98.890 Other specified postprocedural states; Z95.1 Presence of aortocoronary bypass graft; Z87.891 Personal history of nicotine dependence; Z79.899 Other long term (current) drug therapy
CPT/HCPCS: 36415; 70450; 70496; 70498; 71045; 80048; 80053; 80061; 83036; 83605; 83735; 84443; 85025; 85610; 85730; 93005; 93306; 96361; 96374; 96375; 99285